=== PATIENT | female | born 1965 | race Caucasian/White ===

== ENCOUNTER 2017-09-01 01:37 | Emergency (ER) | payer MEDICAID ==
[~2017-09-01] VITALS: Ht 170.2 cm; Wt 72.7 kg
[2017-09-01] MEDS ORDERED: normal saline 1000ml 1,000 ML IV ONE (01:46)
[2017-09-01] MEDS ORDERED: normal saline 1000ML IV soln IVB ONE (01:50)
[2017-09-01] MEDS ORDERED: insulin regular, human 10 units/0.1 ml syringe IV ONE ×2 (02:25→04:15)
[2017-09-01 02:31] LABS: BASOPHILS % (AUTO) 0.2 % (0-1); EOSINOPHILS # (AUTO) 0.2 X10'3 (0-0.9); EOSINOPHILS % (AUTO) 1.8 % (0-6); LYMPHOCYTES % (AUTO) 21.5 % (21-51); MEAN CORPUSCULAR HEMOGLOBIN 33.3 PG (27.0-31.0); MEAN CORPUSCULAR HGB CONC 35.1 % (33.0-36.5); MEAN CORPUSCULAR VOLUME 94.9 FL (78-98); MEAN PLATELET VOLUME 10.1 FL (7.4-10.4); MONOCYTES # (AUTO) 0.1 X10'3 (0-0.9); MONOCYTES % (AUTO) 0.7 % (2-12); NEUTROPHILS # (AUTO) 10.4 X10'3 (1.8-7.7); NEUTROPHILS % (AUTO) 75.8 % (42-75); PLATELET COUNT 192 X10'3 (140-440); RED CELL DISTRIBUTION WIDTH 15.4 % (11.5-14.5); WHITE BLOOD COUNT 13.7 X10'3 (4.5-11.0)
[2017-09-01 02:50] LABS: INR 0.9 INR; PARTIAL THROMBOPLASTIN TIME 22 SECONDS (22-32); PROTHROMBIN TIME 9.8 SECONDS (9.0-12.0)
[2017-09-01 02:55] LABS: ALANINE AMINOTRANSFERASE 71 U/L (12-78); ALBUMIN 2.7 G/DL (3.4-5.0); ALBUMIN/GLOBULIN RATIO 0.7 (1.1-1.5); ALKALINE PHOSPHATASE 209 IU/L (46-116); BILIRUBIN,TOTAL 0.3 MG/DL (0.1-1.0); BLOOD UREA NITROGEN 11 MG/DL (7-18); BUN/CREATININE RATIO 16.4 (6.6-38.0); CALCIUM 7.5 MG/DL (8.5-10.1); CREATININE 0.67 MG/DL (0.40-0.90); LIPASE 520 U/L (73-393); MAGNESIUM 1.5 MG/DL (1.5-2.4); SODIUM 138 MMOL/L (135-145); TOTAL CARBON DIOXIDE 21.1 MMOL/L (24-32); TOTAL PROTEIN 6.6 G/DL (6.4-8.2); eGFR > 90 ML/MIN
[2017-09-01 03:06] LABS: URINE HCG NEGATIVE (NEG)
[2017-09-01 03:09] LABS: ANION GAP 12 (8-16); ASPARTATE AMINO TRANSFERASE 40 U/L (10-37); CHLORIDE 105 MMOL/L (99-107); GLUCOSE 371 MG/DL (70-104)
[2017-09-01 03:10] LABS: POTASSIUM 3.1 MMOL/L (3.5-5.1)
[2017-09-01 03:18] LABS: URINE AMPHETAMINE SCREEN NEGATIVE (Neg); URINE BARBITUATE SCREEN NEGATIVE (Neg); URINE BENZODIAZEPINES SCREEN NEGATIVE (Neg); URINE CANNABINOID SCREEN POSITIVE (Neg); URINE COCAINE SCREEN NEGATIVE (Neg); URINE METHADONE SCREEN NEGATIVE (Neg); URINE OPIATE SCREEN NEGATIVE (Neg); URINE PHENCYCLIDINE SCREEN NEGATIVE (Neg)
[2017-09-01] MEDS ORDERED: magnesium oxide 400mg tablet PO ONE (03:30)
[2017-09-01] MEDS ORDERED: potassium Cl 20 mEq SR tablet PO ONE (03:30)
[2017-09-01] MEDS ORDERED: potassium 10mEq/100ml NS w/LIDOcaine (10mg/bag) IV ONE (03:30)
[2017-09-01] MEDS: magnesium 1gm/100ml D5W IVPB 100 ML IV SCH ×2 (03:52→04:30)
[2017-09-01] MEDS ORDERED: GABA-530 PO (04:03)
[2017-09-01] MEDS ORDERED: CLON-529 PO (04:03)
[2017-09-01] MEDS ORDERED: FURO80TA87 PO (04:03)
[2017-09-01] MEDS ORDERED: POTA10TA10 PO (04:03)
[2017-09-01] MEDS ORDERED: HALO10TA13 PO ×2 (04:03)
[2017-09-01] MEDS ORDERED: SITA25TA3 PO ×2 (04:03→04:15)
[2017-09-01] MEDS ORDERED: ENAL20TA75 PO (04:03)
[2017-09-01] MEDS ORDERED: insulin glargine (Lantus) pen - multi-dose SQ ONE (04:15)
[2017-09-01] MEDS ORDERED: ENAL10TA78 PO (04:15)
[2017-09-01 05:22] VITALS: BP 122/64
[2017-09-02] MEDS ORDERED: HALO10TA13 PO (14:07)
[2017-09-02] MEDS ORDERED: ENAL10TA78 PO (14:07)
[2017-09-02] MEDS ORDERED: CLON-529 PO (14:07)
[2017-09-02] MEDS ORDERED: SITA25TA3 PO (14:07)
[2017-09-02] MEDS ORDERED: GABA-530 PO (14:07)
== END 2017-09-01 05:27 | disposition home or self-care (01) ==
LOC: ER 01:38
DX: K85.90 Acute pancreatitis without necrosis or infection, unspecified (principal); E11.65 Type 2 diabetes mellitus with hyperglycemia; I10 Essential (primary) hypertension; E87.6 Hypokalemia; E83.42 Hypomagnesemia; Z91.14 Patient's other noncompliance with medication regimen; Z87.891 Personal history of nicotine dependence; Z79.899 Other long term (current) drug therapy; Z59.0 Homelessness
CPT/HCPCS: 36415; 80053; 80305; 81025; 82948; 83036; 83690; 83735; 85025; 85610; 85730; 96361; 96365; 96372; 96375; 96376; 99284; J1815; J3480; J7030

== ENCOUNTER 2017-09-02 10:30 | Emergency (ER) | payer MEDICAID ==
[~2017-09-02] VITALS: Ht 167.6 cm; Wt 88.0 kg
[~2017-09-02 10:30] MED LIST: CLON-529 PO; ENAL10TA78 PO; ENAL20TA75 PO; FURO80TA87 PO; GABA-530 PO; HALO10TA13 PO; POTA10TA10 PO; SITA25TA3 PO
[2017-09-02] MEDS ORDERED: normal saline 1000ML IV soln IVB ONE (10:50)
[2017-09-02 11:13] LABS: BASOPHILS % (AUTO) 0 % (0-1); EOSINOPHILS # (AUTO) 0.1 X10'3 (0-0.9); EOSINOPHILS % (AUTO) 0.9 % (0-6); HEMATOCRIT 41.6 % (35.0-45.0); LYMPHOCYTES # (AUTO) 2.3 X10'3 (1.1-4.8); LYMPHOCYTES % (AUTO) 20.8 % (21-51); MEAN CORPUSCULAR HEMOGLOBIN 32.5 PG (27.0-31.0); MEAN CORPUSCULAR HGB CONC 33.6 % (33.0-36.5); MEAN CORPUSCULAR VOLUME 96.8 FL (78-98); MEAN PLATELET VOLUME 10.4 FL (7.4-10.4); MONOCYTES # (AUTO) 0.2 X10'3 (0-0.9); MONOCYTES % (AUTO) 1.4 % (2-12); NEUTROPHILS # (AUTO) 8.7 X10'3 (1.8-7.7); NEUTROPHILS % (AUTO) 76.9 % (42-75); PLATELET COUNT 205 X10'3 (140-440); RED CELL DISTRIBUTION WIDTH 15.3 % (11.5-14.5); WHITE BLOOD COUNT 11.3 X10'3 (4.5-11.0)
[2017-09-02 11:37] LABS: ANION GAP 8 (8-16); BLOOD UREA NITROGEN 9 MG/DL (7-18); BUN/CREATININE RATIO 10.6 (6.6-38.0); CHLORIDE 97 MMOL/L (99-107); CREATININE 0.85 MG/DL (0.40-0.90); POTASSIUM 4.1 MMOL/L (3.5-5.1); SODIUM 133 MMOL/L (135-145); TOTAL CARBON DIOXIDE 27.8 MMOL/L (24-32)
[2017-09-02 11:38] LABS: ALANINE AMINOTRANSFERASE 87 U/L (12-78); ALBUMIN 3.5 G/DL (3.4-5.0); ALBUMIN/GLOBULIN RATIO 0.8 (1.1-1.5); ALKALINE PHOSPHATASE 320 IU/L (46-116); ASPARTATE AMINO TRANSFERASE 42 U/L (10-37); BILIRUBIN,TOTAL 0.4 MG/DL (0.1-1.0); MAGNESIUM 1.9 MG/DL (1.5-2.4); PHOSPHORUS 3.6 MG/DL (2.3-4.5); TOTAL PROTEIN 7.7 G/DL (6.4-8.2); eGFR 71 ML/MIN
[2017-09-02 11:45] LABS: CALCIUM 8.8 MG/DL (8.5-10.1); LARGE PLATELETS FEW; PLATELET ESTIMATE NORMAL
[2017-09-02 11:48] LABS: GLUCOSE 628 MG/DL (70-104)
[2017-09-02] MEDS ORDERED: insulin regular, human 10 units/0.1 ml syringe IV ONE (12:35)
[2017-09-02] MEDS ORDERED: SITA25TA3 PO (14:07)
[2017-09-02] MEDS ORDERED: GABA-530 PO (14:07)
[2017-09-02] MEDS ORDERED: CLON-529 PO (14:07)
[2017-09-02] MEDS ORDERED: HALO10TA13 PO (14:07)
[2017-09-02] MEDS ORDERED: ENAL10TA78 PO (14:07)
[2017-09-02 14:22] VITALS: BP 154/94
== END 2017-09-02 14:23 | disposition home or self-care (01) ==
LOC: ER 10:30
DX: E11.65 Type 2 diabetes mellitus with hyperglycemia (principal); I10 Essential (primary) hypertension; Z90.81 Acquired absence of spleen; Z59.0 Homelessness; Z98.890 Other specified postprocedural states; Z79.899 Other long term (current) drug therapy
CPT/HCPCS: 36415; 80053; 82948; 83735; 84100; 85025; 96361; 96374; 99284; J1815; J7030

== ENCOUNTER 2017-11-23 12:04 | Emergency (ER) | payer MEDICAID ==
[~2017-11-23] VITALS: Ht 162.6 cm; Wt 61.8 kg
[~2017-11-23 12:04] MED LIST changes: -ENAL10TA78 PO
[2017-11-23] MEDS ORDERED: normal saline 1000ML IV soln IVB ONE (12:40)
[2017-11-23] MEDS ORDERED: normal saline 1000ml 1,000 ML IV ONE ×2 (12:45→13:35)
[2017-11-23] MEDS ORDERED: insulin regular, human 10 units/0.1 ml syringe IV ONE ×2 (12:45→13:35)
[2017-11-23 12:56] LABS: BASOPHILS # (AUTO) 0.1 X10'3 (0-0.2); BASOPHILS % (AUTO) 0.5 % (0-1); EOSINOPHILS % (AUTO) 0.4 % (0-6); HEMATOCRIT 38.7 % (35.0-45.0); HEMOGLOBIN 12.9 g/dl (12.0-16.0); LYMPHOCYTES # (AUTO) 2.8 X10'3 (1.1-4.8); LYMPHOCYTES % (AUTO) 26.2 % (21-51); MEAN CORPUSCULAR HGB CONC 33.3 % (33.0-36.5); MEAN CORPUSCULAR VOLUME 96.1 FL (78-98); MEAN PLATELET VOLUME 9.6 FL (7.4-10.4); MONOCYTES # (AUTO) 0.5 X10'3 (0-0.9); MONOCYTES % (AUTO) 4.8 % (2-12); NEUTROPHILS # (AUTO) 7.2 X10'3 (1.8-7.7); NEUTROPHILS % (AUTO) 68.1 % (42-75); PLATELET COUNT 249 X10'3 (140-440); RED BLOOD COUNT 4.03 X10'6 (4.20-5.60); RED CELL DISTRIBUTION WIDTH 14.5 % (11.5-14.5); WHITE BLOOD COUNT 10.6 X10'3 (4.5-11.0)
[2017-11-23 13:22] LABS: ALANINE AMINOTRANSFERASE 77 U/L (12-78); ALBUMIN 2.8 G/DL (3.4-5.0); ALBUMIN/GLOBULIN RATIO 0.8 (1.1-1.5); ALKALINE PHOSPHATASE 179 IU/L (46-116); ANION GAP 9 (8-16); ASPARTATE AMINO TRANSFERASE 25 U/L (10-37); BILIRUBIN,TOTAL 0.3 MG/DL (0.1-1.0); BLOOD UREA NITROGEN 20 MG/DL (7-18); BUN/CREATININE RATIO 25.6 (6.6-38.0); CALCIUM 8.2 MG/DL (8.5-10.1); CHLORIDE 97 MMOL/L (99-107); CREATININE 0.78 MG/DL (0.40-0.90); POTASSIUM 4.1 MMOL/L (3.5-5.1); SODIUM 132 MMOL/L (135-145); TOTAL CARBON DIOXIDE 26.2 MMOL/L (24-32); TOTAL PROTEIN 6.4 G/DL (6.4-8.2); eGFR 78 ML/MIN
[2017-11-23 13:27] LABS: GLUCOSE 615 MG/DL (70-104)
[2017-11-23] MEDS ORDERED: NEED-137 (15:10)
[2017-11-23] MEDS ORDERED: INSU100I31 (15:10)
[2017-11-23 15:14] VITALS: BP 148/90
[2017-11-23] MEDS ORDERED: LANTUS SQ (15:16)
[2017-11-23] MEDS ORDERED: [UNRECOGNIZED DRUG - OTHER] (15:17)
[2017-11-23] MEDS ORDERED: NEED-136 (15:23)
[2017-11-23] MEDS ORDERED: INSU100I31 SQ (15:23)
[2017-11-23] MEDS ORDERED: [UNRECOGNIZED DRUG - CODE] (15:26)
== END 2017-11-23 16:40 | disposition home or self-care (01) ==
LOC: ER 12:04
DX: E11.65 Type 2 diabetes mellitus with hyperglycemia (principal); I10 Essential (primary) hypertension; Z98.890 Other specified postprocedural states; Z59.0 Homelessness; Z79.4 Long term (current) use of insulin; Z79.899 Other long term (current) drug therapy
CPT/HCPCS: 36415; 80053; 82948; 85025; 96361; 96374; 96376; 99284; J1815

== ENCOUNTER 2018-01-28 19:01 | Emergency (ER) | payer MEDICAID ==
[~2018-01-28] VITALS: Ht 162.6 cm; Wt 72.7 kg
[~2018-01-28 19:01] MED LIST changes: +DOXY100C43 PO; +FLUC200T8 PO; +HUM7525 SQ; +INSU100I31 SQ; +INSU100I8 SQ; +LANTUS SQ; +NEED-136; +[UNRECOGNIZED DRUG - CODE]; +[UNRECOGNIZED DRUG - OTHER]
[2018-01-28] MEDS ORDERED: insulin regular, human 10 units/0.1 ml syringe IV ONE (21:00)
[2018-01-28 21:16] LABS: BASOPHILS % (AUTO) 0.1 % (0-1); EOSINOPHILS # (AUTO) 0.2 X10'3 (0-0.9); EOSINOPHILS % (AUTO) 1.9 % (0-6); HEMATOCRIT 41.3 % (35.0-45.0); HEMOGLOBIN 13.4 g/dl (12.0-16.0); LYMPHOCYTES % (AUTO) 23.2 % (21-51); MEAN CORPUSCULAR HEMOGLOBIN 31.6 PG (27.0-31.0); MEAN CORPUSCULAR HGB CONC 32.5 % (33.0-36.5); MEAN CORPUSCULAR VOLUME 97.3 FL (78-98); MEAN PLATELET VOLUME 9.6 FL (7.4-10.4); MONOCYTES # (AUTO) 1.1 X10'3 (0-0.9); MONOCYTES % (AUTO) 8.4 % (2-12); NEUTROPHILS # (AUTO) 8.5 X10'3 (1.8-7.7); NEUTROPHILS % (AUTO) 66.4 % (42-75); PLATELET COUNT 277 X10'3 (140-440); RED BLOOD COUNT 4.24 X10'6 (4.20-5.60); RED CELL DISTRIBUTION WIDTH 15.1 % (11.5-14.5); WHITE BLOOD COUNT 12.8 X10'3 (4.5-11.0)
[2018-01-28 21:31] LABS: ALANINE AMINOTRANSFERASE 97 U/L (12-78); ALBUMIN 2.7 G/DL (3.4-5.0); ALBUMIN/GLOBULIN RATIO 0.6 (1.1-1.5); ALKALINE PHOSPHATASE 209 IU/L (46-116); ANION GAP 8 (8-16); ASPARTATE AMINO TRANSFERASE 46 U/L (10-37); BILIRUBIN,TOTAL 0.2 MG/DL (0.1-1.0); BLOOD UREA NITROGEN 14 MG/DL (7-18); BUN/CREATININE RATIO 17.1 (6.6-38.0); CALCIUM 8.9 MG/DL (8.5-10.1); CHLORIDE 100 MMOL/L (99-107); CREATININE 0.82 MG/DL (0.40-0.90); POTASSIUM 4.5 MMOL/L (3.5-5.1); SODIUM 136 MMOL/L (135-145); TOTAL CARBON DIOXIDE 27.8 MMOL/L (24-32); TOTAL PROTEIN 7.4 G/DL (6.4-8.2); eGFR 74 ML/MIN
[2018-01-28 21:33] LABS: GLUCOSE 492 MG/DL (70-104)
[2018-01-28] MEDS ORDERED: insulin regular, human 10 units/0.1 ml syringe SQ ONE (22:00)
[2018-01-28 23:11] VITALS: BP 148/93
== END 2018-01-28 23:11 | disposition home or self-care (01) ==
LOC: ER 19:02
DX: E11.65 Type 2 diabetes mellitus with hyperglycemia (principal); R05 Cough; Z91.19 Patient's noncompliance with other medical treatment and regimen; I10 Essential (primary) hypertension; Z79.899 Other long term (current) drug therapy; Z79.4 Long term (current) use of insulin; Z59.0 Homelessness
CPT/HCPCS: 36415; 80053; 82948; 85025; 96372; 96374; 99283; J1815

== ENCOUNTER 2018-02-13 14:27 | Emergency (ER) | payer MEDICAID ==
[~2018-02-13] VITALS: Ht 162.6 cm; Wt 71.8 kg
[2018-02-13] MEDS ORDERED: LORazepam 1 MG tablet PO ONE (15:05)
[2018-02-13] MEDS ORDERED: normal saline 1000ML IV soln IVB ONE (15:10)
[2018-02-13] MEDS ORDERED: insulin regular, human 10 units/0.1 ml syringe IV ONE ×2 (15:10→17:05)
[2018-02-13 15:27] LABS: BASOPHILS # (AUTO) 0.1 X10'3 (0-0.2); BASOPHILS % (AUTO) 0.9 % (0-1); EOSINOPHILS # (AUTO) 0.2 X10'3 (0-0.9); EOSINOPHILS % (AUTO) 1.7 % (0-6); HEMATOCRIT 46.4 % (35.0-45.0); HEMOGLOBIN 14.7 g/dl (12.0-16.0); LYMPHOCYTES # (AUTO) 3.6 X10'3 (1.1-4.8); LYMPHOCYTES % (AUTO) 27.9 % (21-51); MEAN CORPUSCULAR HEMOGLOBIN 30.5 PG (27.0-31.0); MEAN CORPUSCULAR HGB CONC 31.6 % (33.0-36.5); MEAN CORPUSCULAR VOLUME 96.6 FL (78-98); MEAN PLATELET VOLUME 10.2 FL (7.4-10.4); MONOCYTES # (AUTO) 0.9 X10'3 (0-0.9); MONOCYTES % (AUTO) 6.8 % (2-12); NEUTROPHILS % (AUTO) 62.7 % (42-75); PLATELET COUNT 308 X10'3 (140-440); RED BLOOD COUNT 4.81 X10'6 (4.20-5.60); RED CELL DISTRIBUTION WIDTH 14.4 % (11.5-14.5); WHITE BLOOD COUNT 12.8 X10'3 (4.5-11.0)
--- NOTE | 2018-02-13 15:36 | NUR ---
call for telepsych at this time.
[2018-02-13 15:50] LABS: ALANINE AMINOTRANSFERASE 138 U/L (12-78); ALBUMIN 3.2 G/DL (3.4-5.0); ALBUMIN/GLOBULIN RATIO 0.7 (1.1-1.5); ALKALINE PHOSPHATASE 219 IU/L (46-116); ANION GAP 11 (8-16); ASPARTATE AMINO TRANSFERASE 67 U/L (10-37); BILIRUBIN,TOTAL 0.2 MG/DL (0.1-1.0); BLOOD UREA NITROGEN 17 MG/DL (7-18); BUN/CREATININE RATIO 15.2 (6.6-38.0); CALCIUM 8.6 MG/DL (8.5-10.1); CHLORIDE 95 MMOL/L (99-107); CREATININE 1.12 MG/DL (0.40-0.90); ETHANOL < 0.010 GM/DL (0.0-0.010); SODIUM 133 MMOL/L (135-145); TOTAL CARBON DIOXIDE 26.9 MMOL/L (24-32); TOTAL PROTEIN 8.1 G/DL (6.4-8.2); eGFR 51 ML/MIN
[2018-02-13 15:53] LABS: GLUCOSE 685 MG/DL (70-104); POTASSIUM 4.4 MMOL/L (3.5-5.1)
--- NOTE | 2018-02-13 16:00 | NUR ---
SPOKE TO PSYCHIATRIST FROM [facility]
[2018-02-13 16:11] LABS: CLARITY,URINE CLEAR (Clear); COLOR,URINE STRAW (Yellow); GLUCOSE, URINE >=1000 mg/dl (Neg); KETONES,URINE NEGATIVE (Neg); LEUKOCYTE ESTERASE ,URINE NEGATIVE (Neg); NITRITES, URINE NEGATIVE (Neg); OCCULT BLOOD,URINE NEGATIVE (Neg); PROTEIN,URINE NEGATIVE (Neg); UROBILINOGEN,URINE 0.2 E.U/dL (0.2-1.0)
[2018-02-13 16:12] LABS: UA COLLECTION TYPE CLN CATCH MIDSTREAM
[2018-02-13 16:22] LABS: SQUAMOUS EPITHELIAL CELL,UR FEW /LPF (FEW)
[2018-02-13 16:23] LABS: BACTERIA,URINE FEW /HPF (Neg); RBC,URINE 0-2 /HPF (0-2); URINE AMPHETAMINE SCREEN NEGATIVE (Neg); URINE BARBITUATE SCREEN NEGATIVE (Neg); URINE BENZODIAZEPINES SCREEN NEGATIVE (Neg); URINE CANNABINOID SCREEN POSITIVE (Neg); URINE COCAINE SCREEN NEGATIVE (Neg); URINE METHADONE SCREEN NEGATIVE (Neg); URINE OPIATE SCREEN NEGATIVE (Neg); URINE PHENCYCLIDINE SCREEN NEGATIVE (Neg); WBC,URINE 0-4 /HPF (0-4)
[2018-02-13 16:31] LABS: LIPASE 413 U/L (73-393)
--- NOTE | 2018-02-13 16:51 | NUR ---
SPOKE TO PSYCHIATRIST FROM [facility] AND HE IS RECOMENDING INPATIENT PHYSHIATRIC PLACEMENT AND SEROQUEL 25 MG AM, 25 MG PM, 150 MG HS ANA GONZALES INFORMED
[2018-02-13] MEDS ORDERED: metFORMIN 500mg tablet PO ONE (17:05)
[2018-02-13] MEDS ORDERED: QUEtiapine 25mg tablet PO ONE (17:05)
[2018-02-13] MEDS ORDERED: normal saline 1000ml 1,000 ML IV ONE (17:05)
--- NOTE | 2018-02-13 18:44 | NUR ---
PT ASLEEP , LYING ON HER BACK WITH BLANKETS COVERING TO HER CHEST. RR 14 AND UNLABORED. ACCUCHECK NOW 252. VSVivek ENRIQUEZ IN TO CHECK ON PT. HE REPORTS PT WILL BE OK TO MOVED TO THE OVERFLOW AREA.
[2018-02-13] MEDS ORDERED: glucagon, human recombinant 1mg kit SUBCUT PRN (18:45)
[2018-02-13] MEDS ORDERED: dextrose ORAL solution 15 GM/59 ML bottle PO PRN ×2 (18:45)
[2018-02-13] MEDS ORDERED: dextrose 50%-water 50ml dispensing syringe IV PRN ×2 (18:45)
--- NOTE | 2018-02-13 19:26 | NUR ---
PER Ric ENRIQUEZ, PT OK TO BE MOVED TO OVERFLOW AND IS MEDICALLY CLEARED. VERBAL RECEIVED FOR HYPER/HYPOGLYCEMIA PROTOCOL.
--- NOTE | 2018-02-13 19:44 | NUR ---
di Pedraza pt with stable vs. she reports a jaime of 5 out of 10. she is voluntarily here and reprots she wants help and is a low elopement risk. pt requests food. i will order her a dinner tray.
--- NOTE | 2018-02-13 20:01 | NUR ---
PT NOW DRESSED IN [facility]
[2018-02-13] MEDS: quetiapine 100mg tablet PO SCH (22:06)
--- NOTE | 2018-02-13 22:41 | NUR ---
The patient was transferred to bed 20. She was very cooperative with the move. She presents and calm and alert. She is vague about past mental health diagnosis. She stated she has been in and out of psychiatric facilities since age 13. [facility] reportedly [facility] and has not been effectively able to manage her psychiatric medications or her diabetes. She stated that she has been having suicidal thoughts of walking in front of a car or overdosing on regular insulin. She reports that her has and her mother recently was placed in a dementia placement. The patient denies voices currently. She denies visual hallucinations currently. She was seen by telepsychiatrist and given an dx of schizoaffetive disorder.
--- NOTE | 2018-02-13 22:44 | NUR ---
pt moved from main er bed 14 to overflow. report given to dre canseco.
--- NOTE | 2018-02-14 00:46 | NUR ---
The patient appears to be sleeping at this time
--- NOTE | 2018-02-14 03:00 | NUR ---
The patient appears to be asleep at this time
--- NOTE | 2018-02-14 05:31 | NUR ---
The patient appears to have been sleeping well throughout the night
--- NOTE | 2018-02-14 06:30 | NUR ---
Asleep upon change of shift observation. Undisturbed at this time. Respirations WNL at 16.
[2018-02-14] MEDS ORDERED: metFORMIN 500mg tablet PO SCH (07:00)
[2018-02-14] MEDS: QUEtiapine 25mg tablet PO SCH (07:09)
--- NOTE | 2018-02-14 07:51 | NUR ---
Blood sugar tested = 228 Glucophage 500 mg. administered as ordered
--- NOTE | 2018-02-14 09:00 | NUR ---
Note undone in EDM - 02/14/18 at 1538 by PGALVAN Awakened for breakfast and AM medication. Patient states she is unable to eat due to nausea. Accepted Cipro without event. Dr. Sanchez notied of patient's nausea. Order given for Zofran 4 mg. Admisistered as ordered.
--- NOTE | 2018-02-14 13:45 | NUR ---
patient on supine asleep,we will monitor.
--- NOTE | 2018-02-14 14:02 | NUR ---
[facility] IS TALKING TO PT AT BEDSIDE
--- NOTE | 2018-02-14 15:15 | NUR ---
Patient asked to have her blood sugar taken because "I feel hot and hungry." Blood sugar = 251 Dr. Sanchez notified Order given to increase Glucophage to 1000 mg. BID
[2018-02-14] MEDS ORDERED: QUEtiapine 25mg tablet PO SCH (16:00)
--- NOTE | 2018-02-14 17:00 | NUR ---
Blood sugar = 308 Glucophage 1000 mg. PO administered as ordered. Patient states she takes Glucophage 1000 mg. PO BID at home
[2018-02-14] MEDS: metFORMIN 500mg tablet PO SCH (17:07)
--- NOTE | 2018-02-14 18:40 | NUR ---
Report received from RAHAT Lozano. Pt. sitting in bed eating dinner and appears calm at this time, rr even and unlabored.
[2018-02-14] MEDS: quetiapine 100mg tablet PO SCH (20:15)
--- NOTE | 2018-02-14 20:30 | NUR ---
Pt's BS 367, Dr. Pendleton notified, order to re-check BS again in one-hour.
--- NOTE | 2018-02-14 20:31 | NUR ---
Pt. is calm and cooperative with assessment, however visibly depressed and reports hoplesssness and no plans for the future. She continues to endorese S/I to, "Take 100 units of insulin or walk in front of a car." Pt. reports she feels depressed r/t her passing away, present homelessness, and her mother recently being diagnosed with dementia and being place in a facilty (she is unsure of where). She admits that she sometimes has V/H of her or dogs. Pt. is diabetic and her BS continue to be elevated, will monitor.
--- NOTE | 2018-02-14 22:36 | NUR ---
Pt. asleep at this time, rr even and unlabored. Subsequent BS obtained and was 307, will endorse to MD and follow-up with any additional orders.
--- NOTE | 2018-02-14 22:45 | NUR ---
Dr. Montes notified of pt's BS recheck of 307, no new orders given, she continues on Glucophage 1000mg BID. Also notified Dr. Montes of Chemistry labs out of range on 02/13/18, no new orders given at this time, will continue to monitor.
--- NOTE | 2018-02-15 00:26 | NUR ---
Pt. sleeping on her rt. side at this time, appears to be resting cofortably, will monitor.
--- NOTE | 2018-02-15 02:41 | NUR ---
Pt. sleeping on her left side, rr continue to be even and unlabored.
--- NOTE | 2018-02-15 04:32 | NUR ---
Pt. asleep on her rt. side, appears to continue to rest comfortably
[2018-02-15 05:39] VITALS: BP 139/86
--- NOTE | 2018-02-15 05:45 | NUR ---
Pt. continues to sleep on back, rr even and unlabored.
--- NOTE | 2018-02-15 08:00 | NUR ---
pt awake and eating breakfast
[2018-02-15] MEDS: metFORMIN 500mg tablet PO SCH (08:25)
[2018-02-15] MEDS: QUEtiapine 25mg tablet PO SCH (08:25)
--- NOTE | 2018-02-15 09:10 | NUR ---
pt went back to bed after breakfast
--- NOTE | 2018-02-15 10:00 | NUR ---
pt resting, no complaints at this time
== END 2018-02-15 14:23 ==
LOC: ER 14:27
DX: F31.89 Other bipolar disorder (principal); R45.851 Suicidal ideations; E11.65 Type 2 diabetes mellitus with hyperglycemia; I10 Essential (primary) hypertension; Z59.0 Homelessness; Z98.890 Other specified postprocedural states; Z90.89 Acquired absence of other organs; Z91.14 Patient's other noncompliance with medication regimen; Z79.4 Long term (current) use of insulin; Z79.899 Other long term (current) drug therapy
CPT/HCPCS: 36415; 80053; 80305; 80320; 81001; 82948; 83690; 84443; 85025; 96361; 96374; 96376; 99285; J1815; J7030